=== PATIENT | male | born 1980 | race Caucasian/White ===

== ENCOUNTER 2016-08-25 16:19 | Emergency (ER) | payer OTHER ==
[~2016-08-25] VITALS: Ht 190.5 cm; Wt 84.0 kg
[2016-08-25 16:23] VITALS: BP 115/82; PULSE 55; RESP 17; O2SAT 100
--- NOTE | 2016-08-25 16:52 | ED.REPORT ---
HPI-Abd Pain M Under 40 Date of Service Aug 25, 2016 ED Provider: Cisco Sanchez MD Pt is a 36 year old male with a history of appendectomy who presents to the ED complaining of RLQ abdominal pain onset this morning. He c/o associated diarrhea and nausea for the past 3 days. He denies vomiting, shaking, hematochezia, and any other symptoms. The pt was referred to the ED by urgent care for a possible blockage. Pt reports that he has not drank any unprocessed water. Nursing Notes Stated Complaint: DIARRHEA/NAUSEA SENT BY URGENT CARE Chief Complaint: Male Abdominal Pain Nursing Notes Reviewed: Yes Allergies: Coded Allergies: No Known Allergies (Unverified , 08/25/16) Scheduled PRN Ondansetron ODT (Zofran ODT) 4 Mg Tablet 4 MG PO Q4H PRN PRN For Nausea General Time Seen by MD: 16:36 Chief Complaint Abdominal pain Hx Obtained From: Patient Arrived By: Walk-in Onset Occurred: 5 - 8 hours ago Symptom Duration: Since onset Location: : Diffuse Quality: Painful Severity: Current: Moderate Severity: Maximum: Moderate Recent Healthcare: Recent doctor visit Similar Sx Previous: No Past Medical History Past Medical History Denies - healthy Denies: Congestive heart failure, Diabetes mellitus, Hypertension Past Surgical History Appendectomy Smoking History Current Every Day Smoker Social History Alcohol Use: "Social" Drug Use: THC Ambulatory Status Independent Review of Systems Constitutional: Denies: Fever GI: Reports: Abdominal pain, Diarrhea, Nausea, Denies: Hematochezia, Vomiting Complete sys rev & neg: except as marked. Physical Exam Initial Vital Signs Vital Signs (First) Date Time Temp Pulse Resp B/P Pulse Ox O2 Delivery O2 Flow Rate FiO2 08/25/16 16:23 36.4 55 17 115/82 100 Room Air Initial VS: Reviewed Head / Eyes: Atraumatic, Normocephalic Neck: Supple, Non-tender, Full range of motion Extremities: Vascular intact, Neuro intact Skin: Warm, Dry, No cyanosis Neurologic: Alert, Oriented, Nonfocal Psychiatric: Mood/affect normal, Behavior normal General/Constitutional: Awake, Alert, Cooperative, Not toxic appearing Respiratory / Chest: Atraumatic, Breath sounds NL, Breath sounds = bilat Cardiovascular: Heart rate NL, Regular rhythm, Heart sounds NL Abdomen: Atraumatic, Soft Mild diffuse abdominal tenderness without guarding. Back: Atraumatic, Full range of motion Interpretation & Diagnostics Lab Results Interpretation Result Diagram: 08/25/16 1745 08/25/16 1745 Test 08/25/16 17:45 White Blood Count 5.9th/mm3 (3.8-10.1) Red Blood Count 5.13mil/mm3 (4.40-5.80) Hemoglobin 14.9g/dL (13.8-17.2) Hematocrit 43.5% (41.0-50.0) Mean Corpuscular Volume 84.8fL (81-100) Mean Corpuscular Hemoglobin 29.0pg (27.0-35.0) Mean Corpuscular Hemoglobin Concent 34.3% (32.0-37.0) Red Cell Distribution Width 13.4% (12.3-15.4) Platelet Count 190bil/L (150-400) Neutrophils (%) (Auto) 66.0% (40-74) Lymphocytes (%) (Auto) 23.0% (14-46) Monocytes (%) (Auto) 9.0% (4-12) Eosinophils (%) (Auto) 1.5% (0-5) Basophils (%) (Auto) 0.3% (0-3) Sodium Level 136mEq/L (134-144) Potassium Level 3.7mEq/L (3.5-5.2) Chloride Level 99mEq/L (97-108) Carbon Dioxide Level 23mmol/L (18-29) Blood Urea Nitrogen 14mg/dL (6-20) Creatinine 0.69mg/dL (0.76-1.27) Estimat Glomerular Filtration Rate 139mL/min (>59) Glucose Level 105mg/dL (60-99) Calcium Level 9.1mg/dL (8.5-10.1) Magnesium Level 2.0mg/dL (1.6-2.6) Total Bilirubin 0.7mg/dL (0.0-1.2) Aspartate Amino Transf (AST/SGOT) 36U/L (0-50) Alanine Aminotransferase (ALT/SGPT) 32U/L (0-44) Alkaline Phosphatase 62U/L (25-150) Total Protein 7.1g/dL (6.4-8.4) Albumin 4.0g/dL (3.4-5.0) Lipase 70U/L (13-60) Hold Castro Top Tube Received (Received) Re-Eval/Medical Decision Med Decision/Clinical Course X-ray is nonspecific. Laboratory data is entirely reassuring. His abdominal examination is relatively benign. His vital signs are relatively reassuring as well. Believe outpatient follow-up is appropriate. We will check stool for ova and parasites as well as PCR evaluation. We will call the patient back tomorrow if tests are abnormal. In the meantime, recommend symptomatically therapy with antidiarrheal medication, antiemetics and hydration and conservative pain medication. The patient was not able to provide a stool specimen while in the department so we sent him home with materials and a requisition to do it. I called the patient this morning, August 26, at 9:15 AM. He reports that some crampy abdominal pain returned during the night and was moderately so severe and it resulted in significant emesis but now that that has passed he says he feels quite a bit better. He denies fever. He was unable to produce a stool specimen overnight. He says that he has no ongoing diarrhea this morning. I encouraged him to follow up Sunday morning if the symptoms are not resolved, sooner if worse. I specifically told him he ought to follow up this weekend if he develops fever or worsening abdominal pain. Source of Hx: Old records Re-Evaluation/Progress : Time of Eval: 17:49 )( Re-Eval Abdomen: Soft Re-Evaluation/Progress Note: Pt rechecked. Informed pt of plan for discharge. Pt understands and agrees with plan for discharge. F/U instructions and RTER warnings given. All questions addressed. Counseled Regarding: Diagnosis, Lab results, Need for follow-up, When/why to return to ED Patient Discharge & Departure Primary Impression: Acute diarrhea Additional Impression: Abdominal pain Abdominal location: generalized Qualified Code: R10.84 - Generalized abdominal pain Disposition: Home Discharge Condition All VS Reviewed: Yes Condition: Stable Patient Instructions: Acute Abdominal Pain (ED), Acute Diarrhea (ED) Additional Instructions: No dangerous metabolic condition is discovered at this time. I recommend copious oral hydration, small amounts frequently. I recommend Imodium as directed for diarrhea. I also recommend Zofran as needed for nausea. Detailed stool tests will be performed on the specimen you provided. We will be checking for Giardia and many other potential pathogens. If these tests are positive, you will get a return call immediately. Otherwise, symptomatic therapy is all that is required. For pain, I recommend Tylenol 1000 mg every 6 hours. Referrals: [facility] Scribe Attestation Portions of this note were transcribed by Portia Cole. I, Dr. Sanchez personally performed the history, physical exam and medical decision-making; I reviewed and confirmed the accuracy of the information in the transcribed note. Signed by: Rebecca Reeves, 08/25/16 and 17:30. copies to: [facility] Cisco Sanchez MD Aug 25, 2016 16:52 Portia Terrell Aug 25, 2016 16:59
[2016-08-25] MEDS ORDERED: HYDROmorphone 0.5 mg/0.5 mL iSecure Syringe IVPUSH PRN (17:30)
[2016-08-25] MEDS ORDERED: 0.9% Sodium Chloride 1,000 ML IV ONE (17:30)
[2016-08-25 17:54] LABS: BASOPHILS % (AUTO) 0.3 % (0-3); EOSINOPHILS % (AUTO) 1.5 % (0-5); Mean Corpuscular Volume 84.8 fL (81-100); Platelet Count 190 bil/L (150-400)
[2016-08-25] MEDS ORDERED: ONDA4TAB9 PO (18:09)
[2016-08-25 19:07] VITALS: BP 113/64; PULSE 64; RESP 20; O2SAT 98
== END 2016-08-25 19:08 | disposition home or self-care (01) ==
LOC: SED 16:19
DX: R19.7 Diarrhea, unspecified (principal); R10.84 Generalized abdominal pain; R11.0 Nausea; F12.10 Cannabis abuse, uncomplicated; Z90.89 Acquired absence of other organs; F17.200 Nicotine dependence, unspecified, uncomplicated
CPT/HCPCS: 36415; 80053; 83690; 83735; 85025; 96361; 96374; 99284; J1885; J7030

== ENCOUNTER 2016-10-21 13:20 | Observation (INO) | payer OTHER ==
[~2016-10-21] VITALS: Ht 190.5 cm; Wt 85.5 kg
[~2016-10-21 13:20] MED LIST: ONDA4TAB9 PO
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
[2016-10-21 13:26] VITALS: BP 122/74; PULSE 65; RESP 12; O2SAT 99
[2016-10-21] MEDS ORDERED: 0.9% Sodium Chloride 1,000 ML IV ONE ×3 (13:28→18:25)
[2016-10-21] MEDS ORDERED: Ondansetron 2 mg/mL 2 mL Inj IVPUSH ONE (13:30)
[2016-10-21 13:54] LABS: BASOPHILS % (AUTO) 0.3 % (0-3); EOSINOPHILS % (AUTO) 2.5 % (0-5); MONOCYTES % (AUTO) 5.6 % (4-12); Mean Corpuscular Hemoglobin 28.9 pg (27.0-35.0); Mean Corpuscular Volume 87.5 fL (81-100); NEUTROPHILS % (AUTO) 45.3 % (40-74); Platelet Count 256 bil/L (150-400)
[2016-10-21 14:06] VITALS: BP 119/65; PULSE 57; RESP 12; O2SAT 98
[2016-10-21 14:23] LABS: INR 0.98 ratio
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
--- NOTE | 2016-10-21 14:38 | DRSVH ---
"PROCEDURE: CT FACE WITHOUT CONTRAST ([id number]) INDICATIONS: trauma TECHNIQUE: Noncontrast 1.5 mm thick axial images acquired from the mandible through the frontal sinuses, with co sanjuanita and sagittal reformatting. For radiation dose reduction, the following was used: automated ex posure control. COMPARISON: [facility], CT, CT BRAIN WO CON, 10/21/2016, 13:57. FINDINGS: Image quality: Excellent. Bones and teeth: Orbital whitlock are intact. Sinus whitlock show no fracture or deformity. Minimally dis placed left nasal bone fracture. The nasal septum appears intact. Visualized portions of the mandibl e demonstrate no fractures or subluxation. Zygomatic arches are intact. Pterygoid plates are intact . Visualized portions of the skull base and auditory canals are intact. Sinuses: There is frontal, ethmoid, and maxillary sinus mucosal thickening bilaterally. Mastoid air cells are aerated. Soft tissues: There is frontal and left | soft tissue edema consistent with contusion. No masses, or fluid collections. No enlarged lymph nodes. No soft tissue lacerations or debris. Vascular: Visualized vascular structures appear normal in the absence of contrast. Bony vascular fo ramina and canals are intact. IMPRESSION: 1. Minimally displaced left nasal bone fracture. 2. Bilateral sinus disease. Dictated by: Cindy Rivera M.D. on 10/21/2016 at 14:29 Approved by: Cindy Rivera M.D. on 10/21/2016 at 14:36"
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
--- NOTE | 2016-10-21 15:04 | DRSVH ---
PROCEDURE: X-RAY CHEST ONE VIEW, PORTABLE ([id number]) INDICATIONS: trauma TECHNIQUE: One view of the chest was acquired. COMPARISON: None. FINDINGS: Surgical changes and devices: None. Lungs and pleura: No pleural effusions or pneumothorax. Lungs are clear. Mediastinum: Mediastinal contours appear normal. Heart size is normal. Bones and chest wall: No suspicious bony lesions. Overlying soft tissues appear unremarkable. IMPRESSION: No acute cardiopulmonary disease. Dictated by: Cindy Rivera M.D. on 10/21/2016 at 15:04 Transcribed by: HUSSAIN on 10/21/2016 at 15:05 Approved by: Cindy Rivera M.D. on 10/21/2016 at 16:32
--- NOTE | 2016-10-21 15:50 | DRSVH ---
PROCEDURE: CT CHEST WITH CONTRAST ([id number]) INDICATIONS: trauma TECHNIQUE: After the administration of intravenous contrast, 5 mm thick sections acquired from the pulmonary api jessie to the posterior costophrenic angles. 7 mm thick coronal and sagittal MIP reformats were acquire d. For radiation dose reduction, the following was used: automated exposure control, adjustment of mA and/or kV according to patient size. COMPARISON: None. FINDINGS: Image quality: Excellent. Lungs and pleura: Small left pneumothorax is present with both apical and basal components. Bibasila r atelectasis. No acute air space opacities. No pleural effusions or pneumothorax. Central and lisbeth pheral airways are patent and normal in caliber. Mediastinum: Heart size is normal. No pericardial effusion. No mediastinal or hilar adenopathy by size criteria. Thoracic aorta and central pulmonary arteries are normal in size. Esophagus is denny l in caliber. No hiatal hernia. Bones and chest wall: Nondisplaced fracture involving the anterior lateral aspect of the left eighth rib. No suspicious bony lesions. No vertebral body compression fractures. No axillary or supraclav icular adenopathy by size criteria. Thyroid gland is normal. Abdomen: Visualized upper abdominal solid organs appear normal. Upper abdominal bowel loops are nor mal in caliber. IMPRESSION: 1. Small pneumothorax with both apical and basal components. 2. Mild bibasilar atelectasis. 3. Nondisplaced left eighth rib fracture. Dictated by: Cindy Rivera M.D. on 10/21/2016 at 15:40 Approved by: Cindy Rivera M.D. on 10/21/2016 at 15:48
[2016-10-21 16:37] VITALS: BP 133/65; PULSE 48; RESP 16; O2SAT 99
--- NOTE | 2016-10-21 17:34 | DRSVH ---
PROCEDURE: CT ABDOMEN AND PELVIS WITH CONTRAST ([id number]) INDICATIONS: trauma TECHNIQUE: After the administration of intravenous contrast, 5 mm thick sections acquired from the diaphragm to the symphysis. 5 mm coronal and sagittal reformats were acquired. For radiation dose reduction, the following was used: automated exposure control, adjustment of mA and/or kV according to patient lissa salazar. COMPARISON: [facility], CT, CT CHEST W CON, 10/21/2016, 15:22. FINDINGS: Image quality: Excellent. ABDOMEN: Lung bases: Small left basilar pneumothorax. Bibasilar atelectasis. Heart size is normal. Solid organs: Liver and spleen are normal in size and enhancement. Gallbladder is normal. Biliary system is non dilated. Pancreas enhances normally. No adrenal nodules. Kidneys demonstrate normal size and enhancement, without hydronephrosis. Peritoneum and bowel: Bowel loops demonstrate normal wall thickness and caliber. No free fluid or a ir. Nodes and vessels: No retroperitoneal or mesenteric adenopathy by size criteria. Aorta and inferior vena cava are normal in size. Miscellaneous: No ventral hernias. PELVIS: Genitourinary: Bladder wall thickness is normal. Miscellaneous: No inguinal hernias or adenopathy. Bones: Nondisplaced right 11th rib fracture and right L1 transverse process. No vertebral body compr ession fractures. IMPRESSION: 1. Small left basilar pneumothorax and bibasilar atelectasis. 2. No visceral organ injuries in abdomen or pelvis. 3. Nondisplaced right 11th hip fracture and right L1 transverse process. Dictated by: Cindy Rivera M.D. on 10/21/2016 at 17:25 Approved by: Cindy Rivera M.D. on 10/21/2016 at 17:32
[2016-10-21] MEDS ORDERED: Alum-Mag Hydrox-Simeth 30 mL Suspension PO PRN (17:45)
[2016-10-21] MEDS ORDERED: Ondansetron 2 mg/mL 2 mL Inj IVPUSH PRN ×2 (17:45→19:10)
[2016-10-21 18:39] VITALS: BP 108/61; PULSE 58; RESP 16; O2SAT 98
[2016-10-21 18:49] VITALS: BP 146/81; PULSE 53; RESP 18; O2SAT 99
[2016-10-21] MEDS ORDERED: MetoCLOpramide 5 mg/mL 2 mL Inj IVPUSH PRN (19:10)
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
[2016-10-21 20:39] VITALS: BP 125/73; PULSE 61; RESP 18; O2SAT 99
--- NOTE | 2016-10-22 01:37 | NUR ---
evening admit to [facility] Alert / oriented X3. Appropriate with care. Multiple skin abrasions of head and extremities / documented. Left lower eyelid bruised / swollen. Denies nausea, taking PO well. Eating hamburger and milk shake his mother brought in. Rates pain from rib fracture and back pain at 6-7. No request for pain meds from patient and none ordered. States understanding of limiting narcotics. pulse oximetry placed. RA sats stable in upper 90's. No SOB but painful with inspiration. VSS, care continues.
[2016-10-22 04:46] VITALS: BP 118/76; PULSE 52; RESP 18; O2SAT 99
--- NOTE | 2016-10-22 06:45 | PCM.DISURG ---
Surgical Discharge Instruction Date of Service Oct 22, 2016 Dates of Hospitalization Date of Hospital Admission Oct 21, 2016 at 16:44 Providers Admitting Physician: Katt Magdaleno MD Primary Care Physician: Nate Freeman MD Attending Physician: Katt Magdaleno MD Discharge Diagnosis Discharge Diagnosis Traumatic Left Pneumothorax Activity Discharge Activity-General: Be up and about Dressing and Incisional Care Hygiene: May shower Follow Up Plan Follow Up Plan Follow up with PCP in 1 week with Chest Xray Call your provider for: Fever, Chills, Shortness of breath, Increasing abdominal pain, Nausea, Vomiting, Wound redness, Discharge @ incision, pus discharge Katt Magdaleno MD Oct 22, 2016 06:45
--- NOTE | 2016-10-22 08:50 | DRSVH ---
PROCEDURE: X-RAY CHEST, TWO VIEWS ([id number]) INDICATIONS: F/U Ptx TECHNIQUE: 2 views of the chest were acquired. COMPARISON: CT from 10/21/2016. FINDINGS: Surgical changes and devices: None. Lungs and pleura: Trace pleural effusions. Tiny left apical pneumothorax. Left basilar atelectasis ot herwise the lungs are clear. Mediastinum: Mediastinal contours are normal. Heart size is normal. Bones and chest wall: No suspicious bony abnormalities. Soft tissues appear unremarkable. IMPRESSION: Tiny left apical pneumothorax. Trace pleural effusions. Left basilar atelectasis. Dictated by: Hunter Sanchez M.D. on 10/22/2016 at 8:47 Approved by: Hunter Sanchez M.D. on 10/22/2016 at 8:49
--- NOTE | 2016-10-22 09:25 | NUR ---
Discharge Pt discharge home with mother via private vehicle. Pt alert and oriented, verbalized understanding of discharge and follow up instructions, personal belongings accounted for and left wit pt.
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
[2016-10-23 07:08] LABS: Hepatitis A Antibody IgM Negative (Negative); Hepatitis B Core Antibody IgM Negative (Negative)
== END 2016-10-22 09:25 | disposition home or self-care (01) ==
LOC: SED 13:20 → MPC 16:44
PROVIDERS: ADMIT Student in an Organized Health Care Education/Training Program; ATTEND Student in an Organized Health Care Education/Training Program
DX: S27.0XXA Traumatic pneumothorax, initial encounter (principal); T40.2X1A Poisoning by other opioids, accidental (unintentional), initial encounter; F91.8 Other conduct disorders; S22.32XA Fracture of one rib, left side, initial encounter for closed fracture; S22.31XA Fracture of one rib, right side, initial encounter for closed fracture; S32.019A Unspecified fracture of first lumbar vertebra, initial encounter for closed fracture; S02.2XXA Fracture of nasal bones, initial encounter for closed fracture; S00.83XA Contusion of other part of head, initial encounter; Y35.813A Legal intervention involving manhandling, suspect injured, initial encounter; Y93.89 Activity, other specified; Y92.410 Unspecified street and highway as the place of occurrence of the external cause; Y99.8 Other external cause status; F17.200 Nicotine dependence, unspecified, uncomplicated; F12.90 Cannabis use, unspecified, uncomplicated
CPT/HCPCS: 36415; 70450; 70486; 71010; 71020; 71260; 72125; 74177; 80053; 85025; 85610; 86705; 86709; 86850; 87340; 87341; 96361; 96374; 99291; 99292; G0378; G0433; G0472; G0480; J2405; J7030; Q9967